=== PATIENT | male | born 1950 | race Caucasian/White ===

== ENCOUNTER → 2022-07-12 | Emergency (ER) | payer MEDICARE, BC ==
[~2022-07-12] VITALS: Ht 165.1 cm; Wt 68.0 kg
[~2022-07-12] MED LIST: AMLO5TAB4 PO; APIX5TAB4 PO; ASPIRIN 325 MG TABLET PO ONE; BUSP5TAB3 PO; DORZ10DR10 RIGHT EYE; ESCI10TA PO; FISH1CAP18 PO; GABA-529 PO; IPRA3AMP9 INH; IPRA4AER INH; LATA2.5D14 RIGHT EYE; LATA7.5D OP; LEVO5TAB13 PO; LIP40 PO; LOSA50TA3 PO; MULT-1089 PO; NAPR-1172 PO; PANT40TA45 PO; POLY15DR31 EACH EYE; TAMS-11 PO; TRAM50TA2 PO; iohexoL 350 mgI/mL, 100 ML INFUS..BTL IV ONE
[2022-07-12 11:15] VITALS: BP_SYST 156
--- NOTE | 2022-07-12 11:15 | NUR ---
PT WAS B/B AMBULANCE FROM POSSIBLE STROKE. DR. ALEXANDER ASSESSED PT ON THE STAT WHEN PT WAS BROUGHT IN.
--- NOTE | 2022-07-12 11:17 | NUR ---
PT TO CT SCAN VIA [facility]
--- NOTE | 2022-07-12 11:25 | NUR ---
REQUESTED TELENEURO PER DR. BRAUN
--- NOTE | 2022-07-12 11:33 | NUR ---
Medication reconciliation completed with information provided by PATIENTS FAMILY GIVEN TO FIRE [facility]. Any prior medication reconciliation on file was reviewed and corrected.
--- NOTE | 2022-07-12 11:53 | NUR ---
DR. SHIELDS, TELENEURO DOC, CALLED TO SPEAK TO DR. BRAUN REGARDING PT STATUS.
[2022-07-12 11:59] LABS: BASOPHILS % (AUTO) 0.4 % (0.0-2.0); EOSINOPHILS % (AUTO) 0.2 % (0.0-4.0); HEMATOCRIT 34.2 % (36-54); HEMOGLOBIN 11.7 g/dL (14.0-18.0); LYMPHOCYTES # (AUTO) 0.7 K/uL (1.0-5.5); MEAN CORPUSCULAR HEMOGLOBIN 30 pg (27-31); MEAN CORPUSCULAR HGB CONC 34 % (32-36); MEAN CORPUSCULAR VOLUME 88 fL (79.0-98.0); MONOCYTES # (AUTO) 0.2 K/uL (0.0-1.0); NEUTROPHILS # (AUTO) 6.3 K/uL (1.8-7.7); NEUTROPHILS % (AUTO) 86.4 % (40.0-70.0); PLATELET COUNT (AUTO) 219 K/uL (130-430); RED BLOOD CELL COUNT(AUTO) 3.89 MIL/uL (4.2-6.2); RED CELL DISTRIBUTION WIDTH 15.8 % (9.0-15.0); WHITE BLOOD COUNT (AUTO) 7.3 K/uL (4.8-10.8)
[2022-07-12 12:15] LABS: ANION GAP 8 (5-15); CALCIUM 8.7 mg/dL (8.4-11.0); CHLORIDE 104 mmol/L (98-107); CREATININE 0.87 mg/dL (0.55-1.30); GLUCOSE 85 mg/dL (70-99); UREA NITROGEN, BLOOD 15 mg/dL (8-21)
[2022-07-12 12:21] LABS: INR 1.1 (0.80-1.20); PROTHROMBIN TIME 11.1 SECS (9.5-12.5)
[2022-07-12 12:24] LABS: ALANINE AMINOTRANSFERASE 15 U/L (12-78); ALBUMIN 3.5 g/dL (3.4-4.8); TOTAL BILIRUBIN 0.7 mg/dL (0.0-1.0)
[2022-07-12 12:49] LABS: ASPARTATE AMINOTRANSFERASE 31 U/L (10-37)
[2022-07-12 14:16] LABS: BILIRUBIN,URINE NEGATIVE (NEGATIVE); BLOOD, URINE NEGATIVE (NEGATIVE); CLARITY/URINE CLEAR (CLEAR); COLOR,URINE YELLOW (YELLOW); GLUCOSE,URINE NEGATIVE (NEGATIVE); KETONES,URINE NEGATIVE (NEGATIVE); LEUKOCYTE ESTERASE ,URINE NEGATIVE (NEGATIVE); NITRITE, URINE NEGATIVE (NEGATIVE); PROTEIN URINE NEGATIVE (NEGATIVE); UROBILINOGEN,URINE 0.2 (0.2-1.0)
[2022-07-12 14:25] LABS: BARBITURATE, URINE NEGATIVE (NEG <=200); BENZODIAZEPINE, URINE NEGATIVE (NEG <=150); CANNABINOID, URINE NEGATIVE (NEG <=50); COCAINE, URINE NEGATIVE (NEG <=150); METHAMPHETAMINES SCREEN,URINE NEGATIVE (NEG <=500); OPIATE, URINE NEGATIVE (NEG <=100); PHENCYCLIDINE SCREEN,URINE NEGATIVE (NEG <=25); UR TRICYCLIC ANTIDEPRESSANTS NEGATIVE (NEG <=300); URINE AMPHETAMINE NEGATIVE (NEG <=500); URINE METHADONE NEGATIVE (NEG <=200); URINE OXYCODONE SCREEN POSITIVE (NEG <=100); URINE PROPOXYPHENE SCREEN NEGATIVE (NEG <=300)
--- NOTE | 2022-07-12 15:54 | NUR ---
TRANSFER INFO [facility] ACCEPTING: Elie MEREDITH REPORT: [phone] ALS ETA 1615 SPOKE TO VERONICA SIMS [facility] [place]
--- NOTE | 2022-07-12 16:11 | NUR ---
PT WAS DECIDED TO TRANSFER TO [facility], BUT PT REFUSED TO SIGN TRANSFER CONSENT, PT REFUSED TO BE TRANSFERED. PT WANTS TO BE DC'D HOME FROM HERE. AWARE, [facility] WAS NOTIFIED.
--- NOTE | 2022-07-12 16:27 | NUR ---
RAYMOND WENT TO [facility] AND TALKED TO PT AGAIN, PT AGREED TO BE TRANSFERED AND SIGNED CONSET. AMBULANCE CAME IN. REPORT ENDORSED TO EMT.
[2022-07-12 16:32] VITALS: BP_SYST 118
--- NOTE | 2022-07-12 16:34 | NUR ---
TRIED SEVERAL TIMES TO CALL VERONICA LAM, GRACIE WAGGONER BUT NO PICKUP PHONE.
--- NOTE | 2022-07-12 17:24 | NUR ---
CALLED VERONICA AGAIN AND REPORT ENDORSED TO CATALINO IRIZARRY.
== END | disposition admitted as inpatient to this hospital (09) ==
LOC: SED 11:15
DX: I63.9 Cerebral infarction, unspecified (principal); R53.1 Weakness; R29.810 Facial weakness; I10 Essential (primary) hypertension; Z79.01 Long term (current) use of anticoagulants; Z79.899 Other long term (current) drug therapy; Z20.822 Contact with and (suspected) exposure to COVID-19
CPT/HCPCS: 99291; 70496; 71045; 87426; 80307; 80053; 85025; 85610; 85730; 86886; 86900; 86901; 84484; 36415; 93005; 70498; 81003; 70450; 76376; Q9967